=== PATIENT | male | born 1960 ===

== ENCOUNTER 2024-12-29 12:14 | Outpatient (CLI) | payer BC, SELFPAY ==
--- NOTE | 2024-12-29 12:24 | CTR_ITS ---
PROCEDURE INFORMATION: Exam: CT Neck With Contrast Exam date and time: 12/29/2024 12:51 PM Age: 64 years old Clinical indication: Hoarseness x 3 months, left vocal cord lesion; Additional info: Left true vocal cord lesion TECHNIQUE: Imaging protocol: Computed tomography of the neck with contrast. Radiation optimization: All CT scans at this facility use at least one of these dose optimization techniques: automated exposure control; mA and/or kV adjustment per patient size (includes targeted exams where dose is matched to clinical indication); or iterative reconstruction. Contrast material: OMNI 350; Contrast volume: 100 ml; Contrast route: INTRAVENOUS (IV); COMPARISON: No relevant prior studies available. RADIATION DOSE METRICS: Total DLP (mGy-cm): 266.55 FINDINGS: Salivary glands: Normal. Glands are normal in size. Teeth: Benign-appearing cyst associated with the crown of the unerupted left mandibular wisdom tooth. Pharynx: Unremarkable. No significant tonsillar enlargement. Larynx: Unremarkable. Epiglottis is normal. Thyroid: Normal. No enlarged or calcified nodules. Trachea: Visualized trachea is unremarkable. Lungs: Emphysematous changes in the visualized upper lung zones. Lymph nodes: Unremarkable. No lymphadenopathy. 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 Bones/joints: Unremarkable. No acute fracture. Soft tissues: Unremarkable. No significant soft tissue swelling. Other findings: Subtle thickening of the anterior half of the left true cord which reaches the midline. CT/CT neck w con* [id number] IMPRESSION: 1. Subtle thickening of the anterior half of the left true cord which reaches the midline. 2. No lymphadenopathy.
[2024-12-29 12:50] LABS: Blood Urea Nitrogen 10 mg/dL (8-23)
[2024-12-29] MEDS: iohexol 350 mg/mL 500 mL Btl (per mL) IV (13:00)
== END 2024-12-29 12:15 | disposition home or self-care (01) ==
LOC: RAD 12:19
PROVIDERS: PCP Nurse Practitioner Family; Visit Provider Nurse Practitioner Family
DX: J38.3 Other diseases of vocal cords (principal); R49.0 Dysphonia
CPT/HCPCS: 70491; 82565; 84520